=== PATIENT | female | born 1950 | race Caucasian/White ===

== ENCOUNTER 2021-09-28 08:14 | Emergency (ER) | payer OTHER ==
[2021-09-28 08:34] VITALS: BMI 29.2
[2021-09-28] MEDS ORDERED: ACETAMINOPHEN 500 MG TABLET (FP) PO ONE (08:35)
[2021-09-28] MEDS ORDERED: ACETAMINOPHEN 500 MG TABLET (FP) ONE (08:42)
[2021-09-28 09:06] LABS: HEMATOCRIT 41.5 % (32.4-45.2); HEMOGLOBIN 14.1 G/dL (10.7-15.3); MCH 30.7 pg (25.7-33.7); MCHC 33.9 g/dl (32.0-36.0); MEAN CELL VOLUME 90.7 fl (80-96); MEAN PLT VOLUME 8.8 fl (7.5-11.1); PLATELET COUNT 211.2 10^3/uL (134-434); RBC 4.58 10^6/uL (3.60-5.2); RDW 13.7 % (11.6-15.6); WHITE BLOOD COUNT 8.4 10^3/uL (4.0-10.8)
[2021-09-28 09:14] LABS: ALBUMIN 3.7 g/dl (3.4-5.0); BILIRUBIN,TOTAL 0.8 mg/dl (0.2-1); CREATININE 0.7 mg/dl (0.55-1.3); TOT PROT 6.3 g/dl (6.4-8.2)
[2021-09-28 12:39] VITALS: BP 118/72; PULSE 18; TEMP 98.3
== END 2021-09-28 12:46 | disposition home or self-care (01) ==
LOC: FER 08:14
DX: R07.9 Chest pain, unspecified (principal)
CPT/HCPCS: 36415; 71046-TC-FY; 71101-TC-RT-FY; 71275-TC; 80053; 84484; 85027; 85379; 93005; 99285-25; Q9967